=== PATIENT | male | born 1990 | race Caucasian/White ===

== ENCOUNTER → 2017-09-05 | Outpatient (CLI) | payer BC ==
[~2017-09-05] MED LIST: NO HOME MEDICATIONS; NORCO 325 MG-51 TAB PO; PERCOCET 325 MG1 TA2 PO
== END ==
LOC: COL.RAD 08:06
DX: K76.0 Fatty (change of) liver, not elsewhere classified (principal)

== ENCOUNTER 2018-02-05 08:00 | Outpatient (RCR) | payer OTHER | END 2018-04-29 | disposition home or self-care (01) | LOC: WSOH | DX: S39.012A Strain of muscle, fascia and tendon of lower back, initial encounter (principal); X50.0XXA Overexertion from strenuous movement or load, initial encounter; Y99.0 Civilian activity done for income or pay; F17.220 Nicotine dependence, chewing tobacco, uncomplicated ==